=== PATIENT | male | born 1990 | race Caucasian/White ===

== ENCOUNTER → 2017-10-04 | Emergency (ER) | payer SELFPAY ==
[~2017-10-04] VITALS: Ht 180.3 cm; Wt 78.0 kg
[~2017-10-04] MED LIST: AUGMENTIN 875875 MG PO; PROVENTIL HFA6.7 GM INH; TESSALON PERLE100 M1 PO; VISTARIL25 M2 PO
== END ==
LOC: ED 21:54
DX: J40 Bronchitis, not specified as acute or chronic (principal); R51 Headache

== ENCOUNTER 2020-05-31 03:43 | Emergency (ER) | payer SELFPAY ==
[~2020-05-31] VITALS: Ht 180.3 cm; Wt 76.2 kg
[2020-05-31 05:44] LABS: ALBUMIN 4.2 gm/dl (3.1-4.5); ALKALINE PHOSPHATASE 101 U/L (45-117); BUN 12 mg/dl (7-24); CHLORIDE 106 mmol/L (98-107); CREATININE 1.12 mg/dL (0.70-1.30); POTASSIUM 4.2 mmol/L (3.5-5.1); SGOT/AST 20 IU/L (3-35); SGPT/ALT 29 U/L (12-78); SODIUM 140 mmol/L (136-145); TOTAL PROTEIN 7.9 gm/dL (6.4-8.2)
[2020-05-31 05:52] LABS: ETHYL ALCOHOL < 3.0 mg/dl (<3)
[2020-05-31 06:05] LABS: BASO % 0.3 % (0.0-1.0); HEMATOCRIT 47.4 % (42.0-52.0); LYMPH % 6.5 % (27.0-41.0); MEAN CELL VOLUME 89.1 fl (80.0-94.0); MEAN CORPUSCULAR HGB 30.1 pg (27.0-31.0); MEAN CORPUSCULAR HGB CONC 33.8 g/dl (33.0-37.0); MEAN PLATELET VOLUME 9.9 fl (9.6-12.3); MONO # 0.6 10*3/uL (0.1-1.0); MONO % 4.2 % (3.0-9.0); NEUT # 13.4 10*3/uL (2.3-7.9); NEUT % 88.7 % (47.0-73.0); PLATELET COUNT AUTOMATED 302 10*3/uL (130-400); RED BLOOD COUNT 5.32 10*6/uL (4.50-5.90); RED CELL DISTRI WIDTH 12.4 % (0-14.5); WHITE BLOOD COUNT 15.2 10*3/uL (4.8-10.8)
== END 2020-05-31 06:19 | disposition home or self-care (01) ==
LOC: ED 03:43
PROVIDERS: Emergency Medicine
DX: R11.10 Vomiting, unspecified (principal); R42 Dizziness and giddiness; Z79.2 Long term (current) use of antibiotics; Z79.899 Other long term (current) drug therapy

== ENCOUNTER 2021-01-23 18:56 | Emergency (ER) | payer BC ==
[~2021-01-23] VITALS: Ht 175.2 cm; Wt 64.4 kg
== END 2021-01-23 20:54 | disposition home or self-care (01) ==
LOC: ED 18:56
DX: F12.10 Cannabis abuse, uncomplicated (principal); R00.0 Tachycardia, unspecified; Z79.2 Long term (current) use of antibiotics; Z79.899 Other long term (current) drug therapy